=== PATIENT | male | born 1990 | race Caucasian/White ===

== ENCOUNTER 2018-12-15 15:05 | Emergency (ER) | payer OTHER ==
[~2018-12-15] VITALS: Ht 177.8 cm; Wt 81.8 kg
[2018-12-15 15:31] VITALS: BP 114/71
== END 2018-12-15 16:00 | disposition home or self-care (01) ==
LOC: ER 15:06
DX: F15.10 Other stimulant abuse, uncomplicated (principal); F10.10 Alcohol abuse, uncomplicated; K59.00 Constipation, unspecified; Y90.9 Presence of alcohol in blood, level not specified
CPT/HCPCS: 99281